=== PATIENT | male | born 1990 | race Caucasian/White ===

== ENCOUNTER 2021-06-01 10:15 | Emergency (ER) | payer MEDICAID, SELFPAY ==
[2021-06-01 10:31] VITALS: BP 178/97; PULSE 88; RESP 16; TEMP 36.8; O2SAT 98; BMI 31.6
--- NOTE | 2021-06-01 10:52 | ED.DENTAL ---
HPI - Dental/Oral General Chief complaint: Dental/Oral Stated complaint: dental pain Time Seen by Provider: 06/01/21 10:39 History of Present Illness HPI Narrative: Patient complains of right lower molar pain after a root canal which was done 10 days ago, he is taking amoxicillin, see had no fever no chills no difficulty breathing or swallowing no swelling under tongue Related Data Previous Rx's Medication Instructions Recorded amoxicillin 875 mg-potassium 1 tab PO BID #10 tab 06/01/21 clavulanate 125 mg tablet (Augmentin) oxycodone 5 mg tablet 5 mg PO Q6H PRN #10 tab 06/01/21 Allergies Allergy/AdvReac Type Severity Reaction Status Date / Time No Known Allergies Allergy Verified 06/01/21 10:31 Review of Systems Review of Systems: Positive for dental pain Negatives are no fever no chills no dizziness no weakness no headache no neck pain no ear pain no difficulty breathing or swallowing no swelling under the tongue no skin rash Yes all other systems are reviewed and are negative PMFSH Past Medical History Source: nursing notes reviewed Medical History (Updated 06/01/21 @ 10:56 by ADDY Chao) No known health problems Social History Social History Advance Directives: No Advance Directives Information Provided: No Physical Exam Vital Signs: Vital Signs: Last Vital Signs Temp 98.2 F 06/01/21 10:31 Pulse 88 06/01/21 10:31 Resp 16 06/01/21 10:31 BP 178/97 H 06/01/21 10:31 Pulse Ox 98 06/01/21 10:31 Body Mass Index 31.6 General appearance no acute distress The ear exam on the right side is normal with no red tympanic membrane the membrane is intact there is no canal swelling The dental exam the right rear lower molar is tender to the touch but otherwise the exam is normal there is no gum swelling there is no fluctuant abscess on the gum there is no redness to the skin of the jaw, there is no trismus there is no swelling under the tongue there is no drooling, there is full range of motion and the mandible Pharynx there is no redness swelling or exudate Neck is supple, there was no swelling or mass in the neck, no tenderness in the neck Respiratory no distress Extremities full range of motion x4 Skin no rashes Course Course Course Narrative: Patient with pain after a root canal but no evidence of any systemic infection or abscess is advised will use a stronger antibiotic for few days and see if that is helpful, given analgesics and recommended follow closely with his dentist for re-evaluation Discharge Plan Discharge Clinical Impression: Pain, dental Patient Disposition: Home, Self-Care Additional Instructions: We are giving you a stronger antibiotic Augmentin You can use oxycodone as needed for pain During the day you can use Tylenol and Motrin together Follow closely with a dentist, if there is no appointment keep calling and see if there is a cancellation Return any time any worse condition or any concerns Prescriptions: New amoxicillin-pot clavulanate [Augmentin] 875-125 mg tablet 1 tab PO BID Qty: 10 RF: 0 oxycodone 5 mg tablet 5 mg PO Q6H PRN (Reason: pain) Qty: 10 RF: 0
== END 2021-06-01 11:42 | disposition home or self-care (01) ==
PROVIDERS: Emergency Provider Emergency Medicine; PCP Nurse Practitioner
DX: K08.89 Other specified disorders of teeth and supporting structures (principal); Z79.899 Other long term (current) drug therapy
CPT/HCPCS: 99283